=== PATIENT | male | born 1970 | race Caucasian/White ===

== ENCOUNTER 2020-08-29 21:10 | Inpatient (IN) | payer MEDICARE, MEDICAID ==
[~2020-08-29] VITALS: Ht 190.5 cm; Wt 103.0 kg
[~2020-08-29 21:10] MED LIST: LURA80TA2 PO; MELA5TAB3 PO; OMEG-135 PO
[2020-08-29 22:16] LABS: GLUCOSE,POINT OF CARE 70 MG/DL (70-110)
[2020-08-29 22:21] LABS: EOSINOPHILS % (AUTO) 2.2 % (1.0-6.0); LYMPHOCYTES # (AUTO) 2.3 K/uL (1.0-4.8); LYMPHOCYTES % (AUTO) 26.9 % (22.0-44.0); MEAN CORPUSCULAR HEMOGLOBIN 29.9 pg (26.0-34.0); MEAN CORPUSCULAR HGB CONC 33.3 G/dL (31.0-37.0); MEAN CORPUSCULAR VOLUME 90 fL (80-100); MONOCYTES # (AUTO) 1.3 K/uL (0.1-1.0); MONOCYTES % (AUTO) 14.8 % (2.0-9.0); NEUTROPHILS # (AUTO) 4.7 K/uL (1.8-7.7); NEUTROPHILS % (AUTO) 55.1 % (40.0-70.0); PLATELET COUNT (AUTO) 251 K/uL (150-450); RED BLOOD CELL COUNT(AUTO) 4.35 MIL/uL (4.50-5.90); RED CELL DISTRIBUTION WIDTH 13.1 % (11.5-14.5)
[2020-08-29 22:29] LABS: ANION GAP 6 mmol/L (8-16); CALCIUM, TOTAL 8.9 mg/dL (8.8-10.5); CARBON DIOXIDE 29 mmol/L (22-29); CHLORIDE 102 mmol/L (98-107); CREATININE 0.81 mg/dL (0.60-1.30); GLOMERULAR FILTR. RATE CALC > 60 mL/min (>60); GLUCOSE,RANDOM 91 mg/dL (70-110); POTASSIUM 4.1 mmol/L (3.5-5.1); SODIUM SERUM 137 mmol/L (136-145); UREA NITROGEN, BLOOD 19 mg/dL (7-18)
[2020-08-29 22:34] LABS: ALANINE AMINOTRANSFERASE 23 U/L (12-78); ALBUMIN 3.2 g/dL (3.4-5.0); ALKALINE PHOSPHATASE 96 U/L (46-116); ASPARTATE AMINOTRANSFERASE 11 U/L (15-37); BILIRUBIN,TOTAL 0.2 mg/dL (0.1-1.0); TOTAL PROTEIN, SERUM 7.1 g/dL (6.4-8.2)
[2020-08-29 23:49] LABS: COVID AG,FIA SOURCE NASOPHARYNGEAL
[2020-08-30] MEDS: LORazepam 2 MG TABLET PO PRN (00:03)
[2020-08-30] MEDS: OLANZapine 5 MG RAPDIS TABLET PO PRN (00:04)
[2020-08-30 00:26] LABS: GLUCOSE,POINT OF CARE 168 MG/DL (70-110)
[2020-08-30 07:06] LABS: GLUCOSE,POINT OF CARE 94 MG/DL (70-110)
[2020-08-30] MEDS ORDERED: LORazepam 2 MG TABLET PO ONE (07:45)
[2020-08-30] MEDS ORDERED: LURASIDONE HCL 40 MG TABLET PO ONE (07:45)
[2020-08-30] MEDS ORDERED: DIVALPROEX SODIUM 500 MG ER TABLET PO ONE (07:45)
[2020-08-30] MEDS ORDERED: LORazepam 2 MG/ML VIAL IM ONE (08:00)
[2020-08-30] MEDS ORDERED: DiphenhydrAMINE HCL 50 MG/ML VIAL IM ONE (08:00)
[2020-08-30] MEDS ORDERED: HALOPERIDOL LACTATE 5 MG/ML VIAL IM ONE (08:00)
[2020-08-30 13:53] LABS: GLUCOSE,POINT OF CARE 60 MG/DL (70-110)
[2020-08-30] MEDS ORDERED: GLUCAGON,HUMAN RECOMBINANT 1 MG VIAL IM ONE (14:00)
[2020-08-30 15:09] LABS: GLUCOSE,POINT OF CARE 58 MG/DL (70-110)
[2020-08-30 15:13] LABS: GLUCOSE,POINT OF CARE 88 MG/DL (70-110)
[2020-08-30 18:35] LABS: GLUCOSE,POINT OF CARE 102 MG/DL (70-110)
[2020-08-30 19:47] LABS: GLUCOSE,POINT OF CARE 58 MG/DL (70-110)
[2020-08-30 19:53] LABS: GLUCOSE,POINT OF CARE 106 MG/DL (70-110)
[2020-08-30 21:50] LABS: GLUCOSE,POINT OF CARE 116 MG/DL (70-110)
[2020-08-30 23:27] LABS: GLUCOSE,POINT OF CARE 90 MG/DL (70-110)
[2020-08-31] MEDS: LORazepam 2 MG TABLET PO PRN ×2 (00:48→13:32)
[2020-08-31] MEDS: OLANZapine 5 MG RAPDIS TABLET PO PRN (00:48)
[2020-08-31 01:11] LABS: GLUCOSE,POINT OF CARE 108 MG/DL (70-110)
[2020-08-31 02:44] LABS: GLUCOSE,POINT OF CARE 85 MG/DL (70-110)
[2020-08-31 03:45] LABS: GLUCOSE,POINT OF CARE 69 MG/DL (70-110)
[2020-08-31] MEDS ORDERED: ACETAMINOPHEN 325 MG TABLET PO PRN (04:30)
[2020-08-31] MEDS ORDERED: 0.9% SODIUM CHLORIDE 10 ML SYRINGE IVP PRN (04:30)
[2020-08-31] MEDS: DEXTROSE 5%-0.9% SODIUM CHL 1,000 ML IV SCH ×2 (04:31→18:38)
[2020-08-31 05:43] LABS: GLUCOSE,POINT OF CARE 80 MG/DL (70-110)
[2020-08-31 07:47] LABS: GLUCOSE,POINT OF CARE 79 MG/DL (70-110)
[2020-08-31 07:53] LABS: GLUCOSE,POINT OF CARE 109 MG/DL (70-110)
[2020-08-31 09:13] LABS: GLUCOSE,POINT OF CARE 91 MG/DL (70-110)
[2020-08-31 10:33] LABS: GLUCOSE,POINT OF CARE 64 MG/DL (70-110)
[2020-08-31 11:37] LABS: GLUCOSE,POINT OF CARE 85 MG/DL (70-110)
[2020-08-31 13:57] LABS: GLUCOSE,POINT OF CARE 109 MG/DL (70-110)
[2020-08-31 13:57] LABS: GLUCOSE,POINT OF CARE 80 MG/DL (70-110)
[2020-08-31 15:45] LABS: GLUCOSE,POINT OF CARE 116 MG/DL (70-110)
[2020-08-31 16:50] VITALS: BP 139/73
[2020-08-31 20:06] LABS: GLUCOMETER DEV NAME(LOC) 5N.3; GLUCOSE,POINT OF CARE 135 MG/DL (70-110)
[2020-08-31 20:19] VITALS: BP 129/71
[2020-08-31 23:26] LABS: GLUCOMETER DEV NAME(LOC) 5S.1; GLUCOSE,POINT OF CARE 124 MG/DL (70-110)
[2020-08-31 23:26] LABS: GLUCOMETER DEV NAME(LOC) 5S.1; GLUCOSE,POINT OF CARE 155 MG/DL (70-110)
[2020-09-01 00:03] VITALS: BP 150/82
[2020-09-01] MEDS ORDERED: SODIUM CHLORIDE 0.9% 250 ML IV ONE (00:51)
[2020-09-01 02:24] LABS: GLUCOMETER DEV NAME(LOC) 5S.1; GLUCOSE,POINT OF CARE 159 MG/DL (70-110)
[2020-09-01 04:19] VITALS: BP 128/93
[2020-09-01 04:53] LABS: GLUCOMETER DEV NAME(LOC) 5S.1; GLUCOSE,POINT OF CARE 108 MG/DL (70-110)
[2020-09-01 07:29] VITALS: BP 122/88
[2020-09-01] MEDS: DEXTROSE 5%-0.9% SODIUM CHL 1,000 ML IV SCH ×2 (08:56→22:51)
[2020-09-01 12:32] LABS: EOSINOPHILS % (AUTO) 5.1 % (1.0-6.0); HEMATOCRIT 46.1 % (41-53); HEMOGLOBIN 15.6 g/dL (13.5-17.5); LYMPHOCYTES # (AUTO) 2.5 K/uL (1.0-4.8); LYMPHOCYTES % (AUTO) 34.1 % (22.0-44.0); MEAN CORPUSCULAR HEMOGLOBIN 30.2 pg (26.0-34.0); MEAN CORPUSCULAR HGB CONC 33.8 G/dL (31.0-37.0); MEAN CORPUSCULAR VOLUME 90 fL (80-100); MONOCYTES # (AUTO) 1.2 K/uL (0.1-1.0); MONOCYTES % (AUTO) 15.9 % (2.0-9.0); NEUTROPHILS # (AUTO) 3.3 K/uL (1.8-7.7); NEUTROPHILS % (AUTO) 43.9 % (40.0-70.0); PLATELET COUNT (AUTO) 270 K/uL (150-450); RED BLOOD CELL COUNT(AUTO) 5.15 MIL/uL (4.50-5.90); RED CELL DISTRIBUTION WIDTH 13.2 % (11.5-14.5)
[2020-09-01 12:42] VITALS: BP 128/86
[2020-09-01 13:04] LABS: ANION GAP 7 mmol/L (8-16); CALCIUM, TOTAL 9.2 mg/dL (8.8-10.5); CARBON DIOXIDE 27 mmol/L (22-29); CHLORIDE 103 mmol/L (98-107); CREATININE 0.56 mg/dL (0.60-1.30); GLOMERULAR FILTR. RATE CALC > 60 mL/min (>60); GLUCOSE,RANDOM 93 mg/dL (70-110); POTASSIUM 4.2 mmol/L (3.5-5.1); SODIUM SERUM 137 mmol/L (136-145); UREA NITROGEN, BLOOD 5 mg/dL (7-18)
[2020-09-01 13:09] LABS: ALANINE AMINOTRANSFERASE 26 U/L (12-78); ALBUMIN 3.5 g/dL (3.4-5.0); ALKALINE PHOSPHATASE 73 U/L (46-116); ASPARTATE AMINOTRANSFERASE 20 U/L (15-37); BILIRUBIN,TOTAL 0.5 mg/dL (0.1-1.0); TOTAL PROTEIN, SERUM 7.9 g/dL (6.4-8.2)
[2020-09-01 14:58] LABS: GLUCOMETER DEV NAME(LOC) 5S.2B; GLUCOSE,POINT OF CARE 114 MG/DL (70-110)
[2020-09-01 17:28] LABS: GLUCOMETER DEV NAME(LOC) 5N.1; GLUCOSE,POINT OF CARE 108 MG/DL (70-110)
[2020-09-01] MEDS ORDERED: HALOPERIDOL LACTATE 5 MG/ML VIAL IVP ONE (17:30)
[2020-09-01] MEDS ORDERED: DiphenhydrAMINE HCL 50 MG/ML VIAL IVP PRN ×2 (17:30)
[2020-09-01] MEDS ORDERED: LORazepam 2 MG/ML VIAL IVP ONE (17:30)
[2020-09-01] MEDS ORDERED: DiphenhydrAMINE HCL 50 MG/ML VIAL IVP ONE (17:30)
[2020-09-01 21:00] VITALS: BP 131/77
[2020-09-01] MEDS: MELATONIN 5 MG TABLET PO SCH (21:00)
[2020-09-01 21:46] VITALS: BP 131/77
[2020-09-01] MEDS ORDERED: ACETAMINOPHEN 325 MG TABLET PO PRN (23:30)
[2020-09-02] MEDS: HALOPERIDOL LACTATE 5 MG/ML VIAL IVP PRN (01:18)
[2020-09-02] MEDS: LORazepam 2 MG/ML VIAL IVP PRN (01:18)
[2020-09-02 04:25] LABS: GLUCOMETER DEV NAME(LOC) 5S.1; GLUCOSE,POINT OF CARE 87 MG/DL (70-110)
[2020-09-02 05:06] LABS: GLUCOMETER DEV NAME(LOC) 5S.2B; GLUCOSE,POINT OF CARE 174 MG/DL (70-110)
[2020-09-02 06:27] VITALS: BP 109/76
[2020-09-02 08:00] VITALS: BP 149/104
[2020-09-02] MEDS: LURASIDONE HCL 80 MG TABLET PO SCH (08:01)
[2020-09-02 08:23] LABS: GLUCOMETER DEV NAME(LOC) 5S.1; GLUCOSE,POINT OF CARE 85 MG/DL (70-110)
[2020-09-02 12:00] VITALS: BP 137/89
[2020-09-02 15:00] VITALS: BP 127/78
[2020-09-02] MEDS: LORazepam 2 MG TABLET PO PRN (15:12)
[2020-09-02 17:26] LABS: GLUCOMETER DEV NAME(LOC) 5S.2B; GLUCOSE,POINT OF CARE 90 MG/DL (70-110)
[2020-09-02 20:17] VITALS: BP 141/84
[2020-09-02 22:04] LABS: GLUCOMETER DEV NAME(LOC) 5S.1; GLUCOSE,POINT OF CARE 111 MG/DL (70-110)
[2020-09-02] MEDS: OLANZapine 5 MG RAPDIS TABLET PO PRN (23:09)
[2020-09-02] MEDS: MELATONIN 5 MG TABLET PO SCH (23:09)
[2020-09-03 00:24] LABS: GLUCOMETER DEV NAME(LOC) 5S.2B; GLUCOSE,POINT OF CARE 110 MG/DL (70-110)
[2020-09-03 00:42] VITALS: BP 147/84
[2020-09-03] MEDS: ZOLPIDEM TARTRATE 10 MG TABLET PO PRN (01:15)
[2020-09-03] MEDS: LORazepam 2 MG TABLET PO PRN ×2 (01:16→14:27)
[2020-09-03 06:11] VITALS: BP 145/101
[2020-09-03 08:24] LABS: GLUCOMETER DEV NAME(LOC) 5S.2B; GLUCOSE,POINT OF CARE 88 MG/DL (70-110)
[2020-09-03 08:42] VITALS: BP 123/103
[2020-09-03] MEDS: LURASIDONE HCL 80 MG TABLET PO SCH (09:26)
[2020-09-03 10:15] VITALS: BP 144/82
[2020-09-03] MEDS: LORazepam 2 MG/ML VIAL IVP PRN ×2 (10:32→20:31)
[2020-09-03] MEDS: HALOPERIDOL LACTATE 5 MG/ML VIAL IVP PRN ×2 (10:33→20:32)
[2020-09-03 12:35] LABS: GLUCOMETER DEV NAME(LOC) 5S.1; GLUCOSE,POINT OF CARE 120 MG/DL (70-110)
[2020-09-03 17:38] VITALS: BP 142/89
[2020-09-03 18:37] LABS: GLUCOMETER DEV NAME(LOC) 6S.1; GLUCOSE,POINT OF CARE 110 MG/DL (70-110)
[2020-09-03 19:00] VITALS: BP 154/93
[2020-09-03] MEDS: MELATONIN 5 MG TABLET PO SCH (20:50)
[2020-09-04] VITALS (7 sets, daily range): BP systolic 129–152; BP diastolic 77–102
[2020-09-04 00:16] LABS: GLUCOMETER DEV NAME(LOC) 6S.1; GLUCOSE,POINT OF CARE 104 MG/DL (70-110)
[2020-09-04 07:34] LABS: GLUCOMETER DEV NAME(LOC) 6S.1; GLUCOSE,POINT OF CARE 81 MG/DL (70-110)
[2020-09-04] MEDS: LURASIDONE HCL 80 MG TABLET PO SCH (08:27)
[2020-09-04 11:54] LABS: GLUCOMETER DEV NAME(LOC) 6N.2; GLUCOSE,POINT OF CARE 104 MG/DL (70-110)
[2020-09-04] MEDS ORDERED: AmLODIPine BESYLATE 10 MG TABLET PO ONE (14:45)
[2020-09-04] MEDS ORDERED: HydrALAZINE HCL 25 MG TABLET PO ONE (16:30)
[2020-09-04] MEDS: MELATONIN 5 MG TABLET PO SCH (20:38)
[2020-09-04] MEDS: HydrALAZINE HCL 25 MG TABLET PO SCH (20:38)
[2020-09-04 20:46] LABS: GLUCOMETER DEV NAME(LOC) 6N.2; GLUCOSE,POINT OF CARE 78 MG/DL (70-110)
[2020-09-04] MEDS: LORazepam 2 MG/ML VIAL IVP PRN (21:44)
[2020-09-04 22:14] LABS: GLUCOMETER DEV NAME(LOC) 6S.1; GLUCOSE,POINT OF CARE 124 MG/DL (70-110)
[2020-09-05 03:41] VITALS: BP 146/97
[2020-09-05 08:08] VITALS: BP 148/102
[2020-09-05] MEDS: LURASIDONE HCL 80 MG TABLET PO SCH (08:09)
[2020-09-05] MEDS: AmLODIPine BESYLATE 10 MG TABLET PO SCH (08:09)
[2020-09-05] MEDS: HydrALAZINE HCL 25 MG TABLET PO SCH ×2 (08:09→20:44)
[2020-09-05 09:47] LABS: GLUCOMETER DEV NAME(LOC) 6N.2; GLUCOSE,POINT OF CARE 98 MG/DL (70-110)
[2020-09-05 10:53] VITALS: BP 146/76
[2020-09-05 13:40] LABS: GLUCOMETER DEV NAME(LOC) 6S.1; GLUCOSE,POINT OF CARE 107 MG/DL (70-110)
[2020-09-05 14:47] VITALS: BP 126/79
[2020-09-05 17:26] LABS: GLUCOMETER DEV NAME(LOC) 6N.2; GLUCOSE,POINT OF CARE 102 MG/DL (70-110)
[2020-09-05 19:45] VITALS: BP 133/71
[2020-09-05] MEDS: MELATONIN 5 MG TABLET PO SCH (20:44)
[2020-09-05] MEDS: LORazepam 2 MG TABLET PO PRN (20:44)
[2020-09-05] MEDS: ZOLPIDEM TARTRATE 10 MG TABLET PO PRN (20:44)
[2020-09-06] VITALS: BP 145/86
[2020-09-06 00:29] LABS: GLUCOMETER DEV NAME(LOC) 6N.2; GLUCOSE,POINT OF CARE 104 MG/DL (70-110)
[2020-09-06 04:12] VITALS: BP 128/90
[2020-09-06 08:03] VITALS: BP 160/89
[2020-09-06] MEDS: AmLODIPine BESYLATE 10 MG TABLET PO SCH (08:04)
[2020-09-06] MEDS: HydrALAZINE HCL 25 MG TABLET PO SCH ×2 (08:04→20:31)
[2020-09-06] MEDS: LURASIDONE HCL 80 MG TABLET PO SCH (08:04)
[2020-09-06 08:35] LABS: GLUCOMETER DEV NAME(LOC) 6S.1; GLUCOSE,POINT OF CARE 76 MG/DL (70-110)
[2020-09-06] MEDS: LORazepam 2 MG TABLET PO PRN ×2 (16:25→20:36)
[2020-09-06 19:20] VITALS: BP 153/77
[2020-09-06 20:30] LABS: GLUCOMETER DEV NAME(LOC) 6N.2; GLUCOSE,POINT OF CARE 82 MG/DL (70-110)
[2020-09-06] MEDS: MELATONIN 5 MG TABLET PO SCH (20:31)
[2020-09-06 22:39] LABS: GLUCOMETER DEV NAME(LOC) 6N.2; GLUCOSE,POINT OF CARE 97 MG/DL (70-110)
[2020-09-06 23:11] LABS: GLUCOMETER DEV NAME(LOC) 6S.1; GLUCOSE,POINT OF CARE 117 MG/DL (70-110)
[2020-09-06 23:24] VITALS: BP 125/72
[2020-09-07 05:00] VITALS: BP 108/67
[2020-09-07 06:53] LABS: GLUCOMETER DEV NAME(LOC) 6S.1; GLUCOSE,POINT OF CARE 92 MG/DL (70-110)
[2020-09-07 08:08] VITALS: BP 157/89
[2020-09-07] MEDS: AmLODIPine BESYLATE 10 MG TABLET PO SCH (08:36)
[2020-09-07] MEDS: LURASIDONE HCL 80 MG TABLET PO SCH (08:36)
[2020-09-07] MEDS: HydrALAZINE HCL 25 MG TABLET PO SCH (08:36)
[2020-09-07 08:54] LABS: COVID AG,FIA SOURCE NASOPHARYNGEAL
[2020-09-07 12:00] VITALS: BP 148/87
[2020-09-07 15:06] LABS: GLUCOMETER DEV NAME(LOC) 6N.2; GLUCOSE,POINT OF CARE 90 MG/DL (70-110)
== END 2020-09-07 12:00 | DRG 637 ==
LOC: EMS 21:12 → 5S 08-31 04:06 → 6N 09-03 12:15
PROVIDERS: ADMIT Internal Medicine; ATTEND Internal Medicine
DX: E11.649 Type 2 diabetes mellitus with hypoglycemia without coma (principal); G93.41 Metabolic encephalopathy; E78.00 Pure hypercholesterolemia, unspecified; F25.9 Schizoaffective disorder, unspecified; I10 Essential (primary) hypertension; Z20.828 Contact with and (suspected) exposure to other viral communicable diseases; G80.9 Cerebral palsy, unspecified; Z91.012 Allergy to eggs; Z91.14 Patient's other noncompliance with medication regimen; Z79.899 Other long term (current) drug therapy
CPT/HCPCS: 87081; 87426; 99291; G0480; J1200; J1610; J1630; J2060; J7042; J7050